=== PATIENT | female | born 1995 | race Caucasian/White ===

== ENCOUNTER → 2017-04-25 | Outpatient (CLI) | payer BC | END | disposition home or self-care (01) | LOC: C.LABSPEC 17:23 | PROVIDERS: ATTEND Physician Assistant | DX: N76.6 Ulceration of vulva (principal) ==

== ENCOUNTER → 2017-05-01 | Outpatient (CLI) | payer BC ==
[2017-05-05 19:33] LABS: HERPES SIMPLEX AB IGG-1 < 0.90 INDEX (< 0.90); HERPES SIMPLEX AB IGG-2 < 0.90 INDEX (< 0.90); HSV1 AB IGM Negative (Negative); HSV2 AB IGM Negative (Negative)
== END | disposition home or self-care (01) ==
LOC: C.LAB1850 10:58
PROVIDERS: ATTEND Physician Assistant
DX: Z11.3 Encounter for screening for infections with a predominantly sexual mode of transmission (principal)